=== PATIENT | male | born 1995 | race Caucasian/White ===

== ENCOUNTER 2019-08-05 15:01 | Emergency (ER) | payer OTHER ==
--- NOTE | 2019-08-05 15:38 | ED Physician Documentation ---
PD HPI HEENT - Stated complaint Stated Complaint: L EAR PX - Chief complaint Chief Complaint: Heent - History obtained from History obtained from: Patient - History of Present Illness Timing - onset: How many months ago (3-4 weeks decreased hearing, with 1 week of worse hearing and now pain.) Timing - duration: Weeks Timing - details: Gradual onset, Still present Location: Right ear, Left ear Worsens: Swalllowing Associated symptoms: Congestion. No: Fever, Facial swelling, Headache, Cough Similar symptoms before: Has not had sx before Review of Systems Constitutional: denies: Fever, Chills, Myalgias Eyes: reports: Decreased vision. denies: Photophobia, Discharge, Irritation Ears: reports: Ear pain Nose: reports: Congestion. denies: Rhinorrhea / runny nose Throat: denies: Sore throat Respiratory: denies: Cough GI: denies: Nausea, Vomiting PD PAST MEDICAL HISTORY - Past Medical History Past Medical History: Yes Cardiovascular: None Respiratory: None Neuro: None Endocrine/Autoimmune: None GI: None : None HEENT: None Psych: Anxiety Musculoskeletal: Chronic back pain Derm: None - Past Surgical History Past Surgical History: No - Present Medications Home Medications: Ambulatory Orders Medication Instructions Recorded Confirmed Cephalexin [Keflex] 500 mg PO Q6H #28 capsule 08/05/19 Cetirizine [ZyrTEC] 10 mg PO DAILY #15 tablet 08/05/19 Naproxen 500 mg PO BID #20 tablet 08/05/19 Sertraline [Zoloft] 100 mg PO DAILY 08/05/19 08/05/19 dexAMETHasone [Decadron] 4 mg PO DAILY #5 tablet 08/05/19 - Allergies Allergies/Adverse Reactions: Allergies Allergy/AdvReac Type Severity Reaction Status Date / Time No Known Drug Allergies Allergy Verified 08/05/19 15:07 - Social History Does the pt smoke?: No Smoking Status: Never smoker Does the pt drink ETOH?: Yes Does the pt have substance abuse?: No - Immunizations Immunizations are current?: Yes - POLST Patient has POLST: No PD ED PE NORMAL - Vitals Vital signs reviewed: Yes - General General: Alert and oriented X 3, No acute distress, Well developed/nourished - HEENT HEENT: Moist mucous membranes, Pharynx benign. No: Ears normal (both ears with redness and fluid behind TMs, right more than left. No performation. Canals are okay. ) - Neck Neck: Supple, no meningeal sign, No adenopathy - Cardiac Cardiac: RRR, No murmur - Respiratory Respiratory: Clear bilaterally - Derm Derm: Normal color, Warm and dry, No rash Results - Vitals Vitals: Oxygen O2 Source Room air PD MEDICAL DECISION MAKING - ED course Complexity details: considered differential, d/w patient Departure - Departure Disposition: Home, Self Care Clinical Impression: Otitis media Qualifiers: Otitis media type: suppurative Chronicity: acute Laterality: bilateral Recurrence: non-recurrent Spontaneous tympanic membrane rupture: without spontaneous rupture Qualified Code(s): H66.003 - Acute suppurative otitis media without spontaneous rupture of ear drum, bilateral Condition: Stable Record reviewed to determine appropriate education?: Yes Instructions: ED Otitis Media Acute Adult Follow-Up: LORY KHAN MD [Primary Care Provider] - Prescriptions: Cephalexin [Keflex] 500 mg PO Q6H #28 capsule Cetirizine [ZyrTEC] 10 mg PO DAILY #15 tablet dexAMETHasone [Decadron] 4 mg PO DAILY #5 tablet Naproxen 500 mg PO BID #20 tablet Comments: There appears to be fluid behind the eardrums on both sides and inflammation of the eardrum itself. Presume there was some fluid congestion and pressure buildup causing the initial symptoms and now likely infected as well. Stay well-hydrated. Cetirizine antihistamine daily for couple of weeks. Decadron steroid daily for 5 days. Cephalexin antibiotic 4 times a day for a week. Naproxen anti-inflammatory twice daily for pain and to help with inflammation. Add Tylenol if needed for pain. Follow-up with your primary care if not improved well over the next 3-5 days. Discharge Date/Time: 08/05/19 16:10
[2019-08-05] MEDS ORDERED: CHERRY SYRUP 10 ML UDC PO ONE (15:52)
[2019-08-05] MEDS ORDERED: cephALEXin 250 MG CAPSULE PO STA (15:52)
[2019-08-05] MEDS ORDERED: DEXAMETHASONE 10 MG/ML VIAL PO STA (15:52)
[2019-08-05] MEDS ORDERED: CETIRIZINE 10 MG TABLET PO STA (15:52)
[2019-08-05 16:10] VITALS: BP 124/83
== END 2019-08-05 16:10 | disposition home or self-care (01) ==
LOC: ED 15:01
DX: H66.003 Acute suppurative otitis media without spontaneous rupture of ear drum, bilateral (principal)
CPT/HCPCS: 99283; 99284; A9270

== ENCOUNTER 2021-03-06 07:23 | Outpatient (CLI) | payer OTHER ==
--- NOTE | 2021-03-06 13:14 | XRAY Report ---
PROCEDURE: Hand 3 View LT INDICATIONS: LEFT HAND/ DIGIT PAIN TECHNIQUE: 3 views of the hand(s) acquired. COMPARISON: None FINDINGS: Bones: No fractures or dislocations. No suspicious bony lesions. Soft tissues: No suspicious soft tissue calcifications. IMPRESSION: Source of left hand pain is not identified. No trauma found. Reviewed by: Mehran Muse MD on 03/06/2021 1:13 PM PDT Approved by: Mehran Muse MD on 03/06/2021 1:13 PM PDT Station ID: [id number]
== END 2021-03-06 23:59 | disposition home or self-care (01) ==
LOC: DI.N 07:23
PROVIDERS: ATTEND Physician Assistant
DX: M79.645 Pain in left finger(s) (principal)

== ENCOUNTER 2021-03-27 09:35 | Outpatient (CLI) | payer OTHER | END 2021-03-27 09:36 | disposition home or self-care (01) | LOC: LAB.N 09:35 | PROVIDERS: ATTEND Orthopaedic Surgery | DX: Z01.812 Encounter for preprocedural laboratory examination (principal); Z20.822 Contact with and (suspected) exposure to COVID-19 ==

== ENCOUNTER 2021-04-01 11:56 | Day surgery (SDC) | payer OTHER ==
[~2021-04-01 11:56] MED LIST: ACETAMINOPHEN 1,000 MG/100 ML 100 ML IV ONE
[2021-04-01] MEDS ORDERED: LACTATED RINGERS 1,000 ML IV ONE ×2 (12:13→14:13)
[2021-04-01] MEDS ORDERED: oxyCODONE 5 MG TABLET PO PRN (12:45)
[2021-04-01] MEDS ORDERED: KETOROLAC 15 MG/ML VIAL IVP STA (12:45)
[2021-04-01] MEDS ORDERED: BUPIVACAINE 0.5% PF 30 ML VIAL ONE (12:55)
[2021-04-01] MEDS ORDERED: KETAMINE 500 MG/10 ML VIAL ONE (12:59)
[2021-04-01] MEDS ORDERED: PROPOFOL 200 MG/20 ML VIAL IVP ONE ×3 (12:59→13:42)
[2021-04-01] MEDS ORDERED: MIDAZOLAM 2 MG/2 ML VIAL ONE (12:59)
[2021-04-01] MEDS ORDERED: SODIUM CHLORIDE 0.9% 10 ML VIAL IVP ONE (13:03)
[2021-04-01] MEDS ORDERED: BUPIVACAINE 0.5% PF 30 ML VIAL INFIL ONE ×2 (13:32)
--- NOTE | 2021-04-01 13:34 | ANESTHESIA ---
Pre-Anesthesia VS, & Labs - Diagnosis L 2nd finger ganglion cyst - Procedure L 2nd finger excision ganglion cyst Vital Signs: Temp Pulse Resp BP Pulse Ox 36.2 C L 92 18 122/78 98 04/01/21 11:54 04/01/21 11:54 04/01/21 11:54 04/01/21 11:54 04/01/21 11:54 Height: 5 ft 7 in Weight (kg): 93 kg Body Mass Index: 32.1 BMI Classification: Obese - NPO >8 hours Home Medications and Allergies Home Medications: Ambulatory Orders Duloxetine HCl [Cymbalta] 60 mg PO BID 03/26/21 Loratadine [Allergy Relief] 10 mg PO DAILY 03/26/21 Omeprazole 20 mg PO DAILY 03/26/21 Prazosin HCl [Minipress] 2 mg PO QPM 03/26/21 Pregabalin [Lyrica] 50 mg PO DAILY 03/26/21 Trazodone HCl 150 mg PO QPM PRN 03/26/21 diazePAM [Valium] 5 - 10 mg PO TID PRN 03/26/21 lamoTRIgine [LaMICtal] 100 mg PO DAILY 03/26/21 Active Medications Oxycodone HCl (Oxycodone 5 Mg Tablet) 5 mg PO Q4HR PRN PRN Reason: PAIN Duloxetine HCl [Cymbalta] 60 mg PO BID 03/26/21 Loratadine [Allergy Relief] 10 mg PO DAILY 03/26/21 Omeprazole 20 mg PO DAILY 03/26/21 Prazosin HCl [Minipress] 2 mg PO QPM 03/26/21 Pregabalin [Lyrica] 50 mg PO DAILY 03/26/21 Trazodone HCl 150 mg PO QPM PRN 03/26/21 diazePAM [Valium] 5 - 10 mg PO TID PRN 03/26/21 lamoTRIgine [LaMICtal] 100 mg PO DAILY 03/26/21 Allergies/Adverse Reactions: Allergies Allergy/AdvReac Type Severity Reaction Status Date / Time No Known Drug Allergies Allergy Verified 08/05/19 15:07 Anes History & Medical History - Anesthetic History Anesthesia Complications: reports: No previous complications Family history of Anesthesia Complications: Denies Family history of Malignant Hyperthermia: Denies - Medical History Cardiovascular: reports: None Pulmonary: reports: Sleep apnea Gastrointestinal: reports: GERD Urinary: reports: None Neuro: reports: None Musculoskeletal: reports: Chronic back pain Endocrine/Autoimmune: reports: None Blood Disorders: reports: None Skin: reports: None Smoking Status: Never smoker Exam General: Alert, Oriented x3, Cooperative Dental: WNL Mouth Openin Fingerbreadth Neck Mobility: Normal Mallampati classification: I Thyromental Distance: 4-6 cm Respiratory: Lungs clear, Normal breath sounds, No respiratory distress Cardiovascular: Regular rate Neurological: Strength at 5/5 X4 ext Mental/Cognitive Status: Alert/Oriented X3, Normal for patient Cognitive Status: Within normal limits Plan Anesthesia Type: Total IV Consent for Procedure(s) Verified and Reviewed: Yes Code Status: Attempt Resuscitation ASA classification: 2-Mild systemic disease Is this case an emergency?: No
--- NOTE | 2021-04-01 14:11 | OPERATIVE REPORT ---
Operative Report - General Procedure Date: 04/01/21 Planned Procedure: Excision of ganglion flexor tendon left index finger Pre-Op Diagnosis: Ganglion cyst flexor tendon sheath left index finger Procedure Performed: Excision of ganglion cyst flexor tendon sheath left index finger Post Op Diagnosis: same as preoperative diagnosis - Procedure Note Primary Surgeon: Zeyad Mullins MD Secondary Surgeon: Roger VALDERRAMA Anesthesia Provider: Dalia Fleming CRNA Anesthesia Technique: General mask Estimated Blood Loss (mL): 1 Indications: painful localized mass base of left index finger volar surface Findings: ganglion cyst flexor tendon sheath left index finger Complications: none - Other Other Information/Narrative: Patient was brought to the operating room placed in a supine position with left arm over a hand table. After satisfactory anesthesia was achieved, left upper extremity was prepped and draped in sterile manner usual fashion. A pneumatic tourniquet had been applied to the proximal left arm over cast padding. A timeout procedure was performed by the entire operating room team and all were in agreement. A Ender zigzag incision was made at the base of the index finger. The entire operation was done using Zeiss 3.2 loupe magnification. The subcutaneous tissue was opened with a spreading technique. The full-thickness flap was developed and the typical appearing flexor tendon sheath ganglion was identified. This was removed en bloc with a small amount of the flexor tendon sheath. Care was taken to avoid the flexor tendon and neurovascular bundle. The mass was sent to pathology. The wound was irrigated. The tourniquet was deflated after 13 minutes. Hemostasis was achieved electrocautery. The skin was closed with int errupted 4-0 nylon suture. A Xeroform sterile gauze dressing was applied to the left hand and index finger. The patient tolerated procedure well. A physician assistant county attorney was utilized to provide retraction, protection of vital structures and wound closure.
[2021-04-01] MEDS ORDERED: oxyCODONE 5 MG TABLET ONE (14:45)
[2021-04-01] MEDS ORDERED: NALOXONE 0.4 MG/ML VIAL IVP PRN (14:47)
[2021-04-01] MEDS ORDERED: ONDANSETRON 4 MG/2 ML VIAL IVP PRN (14:47)
[2021-04-01] MEDS ORDERED: MORPHINE 2 MG/ML CARPUJECT IVP PRN (14:47)
[2021-04-01] MEDS ORDERED: ATROPINE ABBOJECT 1 MG/10 ML SYRINGE IVP PRN (14:47)
[2021-04-01] MEDS ORDERED: ePHEDrine 50 MG/ML VIAL IVP PRN (14:47)
[2021-04-01] MEDS ORDERED: HYDROmorphone 0.5 MG/0.5 ML SYRINGE IVP PRN (14:47)
[2021-04-01] MEDS ORDERED: fentaNYL 100 MCG/2 ML VIAL IVP PRN (14:47)
[2021-04-01] MEDS ORDERED: LACTATED RINGERS 1,000 ML IV SCH (15:00)
[2021-04-01 15:04] VITALS: BP 113/65
--- NOTE | 2021-04-01 16:46 | ANESTHESIA POST OP EVALUATION ---
Anesthesia Post Eval - Post Anesthesia Eval Vitals: Last Vital Signs Temp 36.5 C 04/01/21 15:04 Pulse 68 04/01/21 15:04 Resp 16 04/01/21 15:04 BP 113/65 04/01/21 15:04 Pulse Ox 98 04/01/21 15:04 CV Function Including HR & BP: Stable Pain Control: Satisfactory Nausea & Vomiting: Negative Mental Status: Baseline Respiratory Status: Airway Patent Hydration Status: Satisfactory Anesthesia Complications: None
== END 2021-04-01 11:57 | disposition home or self-care (01) ==
LOC: SDS 11:56
PROVIDERS: ATTEND Orthopaedic Surgery
PROC: 0LB80ZZ Excision of Left Hand Tendon, Open Approach (ICD-10-PCS; principal; 2021-04-01 12:30)
DX: M67.442 Ganglion, left hand (principal); E66.9 Obesity, unspecified; Z68.32 Body mass index [BMI] 32.0-32.9, adult; G47.30 Sleep apnea, unspecified
CPT/HCPCS: 26160; A9270; J0131; J7120

== ENCOUNTER 2021-09-17 13:40 | Emergency (ER) | payer OTHER ==
[2021-09-17] MEDS ORDERED: LOPERAMIDE 2 MG CAPSULE PO STA (16:06)
[2021-09-17] MEDS ORDERED: SODIUM CHLORIDE 0.9% 1,000 ML IV STA (16:06)
[2021-09-17] MEDS ORDERED: ONDANSETRON 4 MG/2 ML VIAL IVP STA (16:06)
--- NOTE | 2021-09-17 16:06 | ED Physician Documentation ---
PD HPI ABD PAIN - Stated complaint Stated Complaint: VOMITING/DIARRHEA - Chief complaint Chief Complaint: Abd Pain - History obtained from History obtained from: Patient (Previously healthy 26-year-old gentleman became ill around midnight last night with vomiting and diarrhea as well as stomach cramps. No fevers. His whole family has been sick with similar illness. No recent travel.) Review of Systems Constitutional: reports: Chills, Sweats. denies: Fever GI: reports: Nausea, Vomiting, Diarrhea. denies: Hematemesis, Bloody / black stool PD PAST MEDICAL HISTORY - Past Medical History Cardiovascular: None Respiratory: Sleep apnea Neuro: None Endocrine/Autoimmune: None GI: GERD : None HEENT: Chronic vision loss Psych: Anxiety, Panic attacks, Post traumatic stress disorder Musculoskeletal: Chronic back pain Derm: None - Past Surgical History Past Surgical History: No - Present Medications Home Medications: Ambulatory Orders Medication Instructions Recorded Confirmed Duloxetine HCl [Cymbalta] 60 mg PO BID 03/26/21 09/17/21 Loratadine [Allergy Relief] 10 mg PO DAILY 03/26/21 09/17/21 Omeprazole 20 mg PO DAILY 03/26/21 09/17/21 Prazosin HCl [Minipress] 2 mg PO QPM 03/26/21 09/17/21 Trazodone HCl 150 mg PO QPM PRN 03/26/21 09/17/21 Loperamide [Imodium] 2 mg PO QID PRN #10 cap 09/17/21 Ondansetron Odt [Zofran] 4 mg TL Q6H PRN #10 tablet 09/17/21 - Allergies Allergies/Adverse Reactions: Allergies Allergy/AdvReac Type Severity Reaction Status Date / Time No Known Drug Allergies Allergy Verified 09/17/21 13:43 - Social History Does the pt smoke?: No Smoking Status: Never smoker Does the pt drink ETOH?: Yes Does the pt have substance abuse?: No - Immunizations Immunizations are current?: Yes - POLST Patient has POLST: No PD ED PE NORMAL - Vitals Vital signs reviewed: Yes - General General: Alert and oriented X 3, No acute distress - Cardiac Cardiac: RRR, No murmur - Respiratory Respiratory: No respiratory distress, Clear bilaterally - Abdomen Abdomen: Normal bowel sounds, Soft, Non tender Results - Vitals Vitals: Vital Signs - 24 hr 09/17/21 09/17/21 09/17/21 13:43 16:38 17:00 Temperature 36.5 C Heart Rate 100 98 88 Respiratory 16 12 16 Rate Blood Pressure 102/77 126/85 H 130/70 O2 Saturation 100 100 100 09/17/21 18:07 Temperature Heart Rate 84 Respiratory 16 Rate Blood Pressure 100/84 H O2 Saturation 100 Oxygen O2 Source Room air - Labs Labs: Laboratory Tests 09/17/21 16:15 Sodium 139 Potassium 3.9 Chloride 102 Carbon Dioxide 26 Anion Gap 11.0 BUN 17 Creatinine 1.1 Estimated GFR (MDRD) 80 L Glucose 113 H Calcium 9.3 PD MEDICAL DECISION MAKING - ED course ED course: 26-year-old gentleman with a syndrome completely consistent with a viral gastroenteritis. He was given IV fluids, Zofran, Imodium p.o. After the above interventions he was feeling well or better anyways. Passed a p.o. challenge and remained nontender on belly examination. The patient was counseled as to the diagnosis and need for follow-up. I counseled the patient with regard to signs and symptoms that would necessitate an urgent reevaluation in the emergency department. They understand they are welcome to return at any time if worse or if not improving as expected. This document was made in part using voice recognition software. While efforts are made to proofread this documents, sound alike and grammatical errors may occur. Departure - Departure Disposition: 01 Home, Self Care Clinical Impression: Viral gastroenteritis Condition: Good Record reviewed to determine appropriate education?: Yes Instructions: ED Gastroenteritis Viral Prescriptions: Loperamide [Imodium] 2 mg PO QID PRN #10 cap PRN Reason: Diarrhea Ondansetron Odt [Zofran] 4 mg TL Q6H PRN #10 tablet PRN Reason: Nausea / Vomiting Comments: If not better in the next 24 hours please return for reevaluation, anytime if worsening. Forms: Activity restrictions Discharge Date/Time: 09/17/21 18:10
[2021-09-17] MEDS ORDERED: KETOROLAC 30 MG/ML VIAL IVP STA (16:27)
[2021-09-17 16:31] LABS: CALCIUM 9.3 mg/dL (8.5-10.3); CREATININE 1.1 mg/dL (0.6-1.2); POTASSIUM 3.9 mmol/L (3.5-5.0)
[2021-09-17 18:07] VITALS: BP 100/84
== END 2021-09-17 18:10 | disposition home or self-care (01) ==
LOC: ED 13:40
DX: A08.4 Viral intestinal infection, unspecified (principal)
CPT/HCPCS: 36415; 80048; 96361; 96374; 96375; 99283; A9270